=== PATIENT | female | born 1970 | race Caucasian/White ===

== ENCOUNTER 2021-03-21 09:06 | Outpatient (REF) | payer BC, SELFPAY ==
[2021-03-21 11:03] LABS: MANUAL DIFF FLAG NO
[2021-03-21 11:20] LABS: Alanine Aminotransferase 20 U/L (0-31); Anion Gap 12 (12-20); Aspartate Amino Transferase 22 U/L (5-31); Blood Urea Nitrogen 10 mg/dL (9-16); Calcium 9.8 mg/dL (8.4-10.2); Carbon Dioxide 26 mmol/L (22-29); Chloride 105 mmol/L (96-108); Cholesterol 224 mg/dL; Estimated Glomerular Filt Rate > 60; Glucose Fasting 86 mg/dL (60-99); HDL Cholesterol 41 mg/dL; LDL Cholesterol Calculated 132 mg/dl; Potassium 4.3 mmol/L (3.3-5.1); Sodium 139 mmol/L (135-145); Triglycerides 257 mg/dL
[2021-03-21 11:25] LABS: Basophils Percent Auto 0.4 % (0-2); Eosinophils Absolute Auto 0.3 X10*3/uL (0.0-0.4); Eosinophils Percent Auto 3.7 % (0-4); Hematocrit 41.3 % (37.0-47.0); Hemoglobin 13.6 g/dl (12.0-16.0); Imm Gran Abs Auto 0.03 X10*3/uL (0.00-0.03); Imm Gran Pct Auto 0.3 % (0.0-0.4); Lymphocytes Absolute Auto 2.5 X10*3/uL (1.2-4.9); Lymphocytes Percent Auto 27.4 % (20-40); Mean Corpuscular HGB Conc 32.9 g/dl (31.0-35.0); Mean Corpuscular Hemoglobin 29.2 pg (27.0-33.0); Mean Corpuscular Volume 88.6 fL (80.0-98.0); Monocytes Absolute Auto 0.6 X10*3/uL (0.1-1.2); Monocytes Percent Auto 6.2 % (2-11); Neutrophils Absolute Auto 5.6 x10*3/uL (2.0-8.3); Platelet Count 307 X10*3/uL (160-400); Red Blood Count 4.66 X10*6/uL (4.20-5.50)
[2021-03-21 11:45] LABS: TSH reflex Free T4 3.18 uIU/mL (0.32-4.0); Vitamin D 25-OH Total 26.5 ng/mL (>30)
== END 2021-03-21 09:07 | disposition home or self-care (01) ==
LOC: HO.HMGCLDS 09:06
PROVIDERS: PCP Internal Medicine; Visit Provider Internal Medicine
DX: Z00.01 Encounter for general adult medical examination with abnormal findings (principal); K21.9 Gastro-esophageal reflux disease without esophagitis; F32.A Depression, unspecified; F41.9 Anxiety disorder, unspecified; I10 Essential (primary) hypertension; G25.81 Restless legs syndrome
CPT/HCPCS: 36415; 80048; 80061; 82306; 84443; 84450; 84460; 85025

== ENCOUNTER → 2021-06-16 15:26 | Outpatient (BNVA) | payer BC, SELFPAY | PROVIDERS: PCP Internal Medicine; Referring Provider Internal Medicine; Visit Provider Nurse Practitioner Family ==

== ENCOUNTER 2021-10-19 08:59 | Day surgery (SDC) | payer BC, SELFPAY ==
--- NOTE | 2021-10-16 10:33 | P.CONAN_ITS ---
Documented by User: Natty Randall NP 10/16/21 10:33 HPI - Anesthesia Eval Consult details Narrative: 51yo F for Colonoscopy PMFSH Active Problems Active Problems: All Active Problems (Updated 03/30/21 @ 00:03 by Annabella Dimas MD) Restless leg (Acute) Chronic GERD (Acute) Anxiety and depression (Acute) FHx: skin cancer (Acute) Past Medical History Medical History Anxiety and depression Cervical myofascial pain syndrome Chronic GERD Depression FHx: skin cancer IBS (irritable bowel syndrome) Myofascial pain syndrome of thoracic spine Overweight Restless leg Seborrheic keratosis Splenomegaly Vitamin D deficiency Family History Family History Father Mental health disorder Prostate cancer Mother No problems noted. Maternal Grandmother No problems noted. Maternal Grandfather No problems noted. Paternal Grandfather No problems noted. Paternal Grandmother No problems noted. Sister No problems noted. Son No problems noted. Surgical History Surgical History History of colposcopy History of reduction mammoplasty History of tonsillectomy Hx of cholecystectomy Hx of LASIK Social History Social History Housing: House Patient Tobacco Use Status: Never used Tobacco Use of substances other than those prescribed or required for medical reasons: No Are you DNR?: No Advance Directives: No Advance Directives Information Provided: Yes service: No Current occupational status: employed Meds Allergies Allergy/AdvReac Type Severity Reaction Status Date / Time No Known Allergies Allergy Verified 09/02/21 15:09 Home Medications Medication Instructions Recorded Confirmed Last Taken Type levonorgestrel 20 mcg/24 hours (7 intrauterine 03/12/21 Unknown History yrs) 52 mg intrauterine device (Mirena) omeprazole 20 mg capsule,delayed 20 mg PO BID 03/12/21 Unknown History release sertraline 100 mg tablet 100 mg PO BID 03/12/21 Unknown History gabapentin 100 mg capsule 100 mg PO TID 06/16/21 Unknown History escitalopram oxalate 10 mg tablet 10 mg PO DAILY 09/02/21 Unknown History propranolol 10 mg tablet 10 mg PO TID PRN 09/02/21 Unknown History Exam Exam Date and Time: October 16, 2021 1033 Assessment and Plan Assessment Anesthesia Assessment: Chart Reviewed Documented by User: Fabiola Guallpa MD 10/19/21 09:35 COUNTS INCLUDE 234 BEDS AT THE [facility] Past Medical History Medical History Anxiety and depression Cervical myofascial pain syndrome Chronic GERD Depression FHx: skin cancer IBS (irritable bowel syndrome) Myofascial pain syndrome of thoracic spine Overweight Restless leg Seborrheic keratosis Splenomegaly Vitamin D deficiency Family History Family History Father Mental health disorder Prostate cancer Mother No problems noted. Maternal Grandmother No problems noted. Maternal Grandfather No problems noted. Paternal Grandfather No problems noted. Paternal Grandmother No problems noted. Sister No problems noted. Son No problems noted. Family history of problems with anesthesia: No Surgical History Surgical History History of colposcopy History of reduction mammoplasty History of tonsillectomy Hx of cholecystectomy Hx of LASIK History of Problems with Anesthesia: No Social History Social History Housing: House Patient Tobacco Use Status: Never used Tobacco Use of substances other than those prescribed or required for medical reasons: No Are you DNR?: No Advance Directives: No Advance Directives Information Provided: Yes service: No Current occupational status: employed Meds Allergies Allergy/AdvReac Type Severity Reaction Status Date / Time No Known Allergies Allergy Verified 09/02/21 15:09 Home Medications Medication Instructions Recorded Confirmed Last Taken Type levonorgestrel 20 mcg/24 hours (7 intrauterine 03/12/21 Unknown History yrs) 52 mg intrauterine device (Mirena) omeprazole 20 mg capsule,delayed 20 mg PO BID 03/12/21 Unknown History release sertraline 100 mg tablet 100 mg PO BID 03/12/21 Unknown History gabapentin 100 mg capsule 100 mg PO TID 06/16/21 Unknown History escitalopram oxalate 10 mg tablet 10 mg PO DAILY 09/02/21 Unknown History propranolol 10 mg tablet 10 mg PO TID PRN 09/02/21 Unknown History Exam Airway Mallampati Class: II TM Dist: >3cm Neck ROM: Full Heart: rrr Lungs: cta Assessment and Plan Assessment Anesthesia Assessment: Anesthesia Plan Discussed and Chart Reviewed Final Anesthetic Review Family History of Problems with Anesthesia: No History of Problems with Anesthesia: No NPO: Yes ASA Class: II Final Preanesthetic Review: No Changes in Pt Med Stat, Meds/Allgs Chart Reviewed and Consent Obtained/Reviewed Patient Risk: Intermediate Procedure Risk: Intermediate Anesthetic Plan Anesthetic Plan: MAC: Disposition: Standard PACU
[2021-10-19 09:23] VITALS: BMI 48.8
[2021-10-19 09:29] VITALS: BP 132/90; PULSE 89; RESP 18; TEMP 36.7; O2SAT 98
--- NOTE | 2021-10-19 09:33 | MHC.SHP ---
Pre-Procedural Eval Section A Date of Service: 10/19/21 The patient is an INPATIENT: No The History & Physical has been completed within 30 days and I have reviewed it.: No Section B Chief Complaint: Screening, Mixed irritable bowel syndrome Details of Present Illness: Colon cancer screening, IBS with diarrhea and constipation Relevant Family History (Specify if Yes): No Relevant Social History: None Present Medications: see Short Stay Collaborative assessment Medical History: Significant History (Anxiety and depression Cervical myofascial pain syndrome Chronic GERD Depression FHx: skin cancer IBS (irritable bowel syndrome) Myofascial pain syndrome of thoracic spine Overweight Restless leg Seborrheic keratosis Splenomegaly Vitamin D deficiency) History of Previous Operations: Relevant previous surgery/procedure and date(s) (History of colposcopy History of reduction mammoplasty History of tonsillectomy Hx of cholecystectomy Hx of LASIK) Allergies: Allergies Allergy/AdvReac Type Severity Reaction Status Date / Time No Known Allergies Allergy Verified 09/02/21 15:09 Review of Systems Sugical H&P ROS: Negative: Constitution, Cardiovascular and Respiratory and Yes, Specify: Gastrointestinal (IBS) Exam Surgical H&P Exam: Normal: Heart, Normal: Lungs, Normal: Extremities and Normal: Abdomen Plan Diagnosis/Plan: Unchanged I have reviewed the history and physical and performed a pertinent physical examination on my patient. No changes have occurred unless specified.
[2021-10-19] MEDS: Lactated Ringers 1,000 ML 100 ML IVCONT (09:35)
--- NOTE | 2021-10-19 09:39 | P.BOP_ITS ---
Brief Operative Note Date of Service: 10/19/21 Pre-op diagnosis: Colon cancer screening, IBS with diarrhea and constipation Post-op diagnosis: other (Diverticulosis, hemorrhoids) Procedure: COLONOSCOPY TILL CECUM WITH BIOPSIES Consent: Indications for the procedure and potential complications of bleeding, perforation, reaction to medications and missed diagnosis were discussed with the patient and informed consent was obtained. Instrument: Olympus PCF H 190 L variable stiffness pediatric colonoscope Monitoring: Vital signs and clinical assessment, intermittent blood pressure monitoring, continuous EKG monitoring, Pulse oximetry and Carbon Dioxide monitoring were done throughout the procedure. Colon withdrawl time was 15 minutes. Procedure: The patient was placed in the left lateral decubitis position and pre-procedure medications were administered. After a digital rectal examination of the ano-rectum, the video colonoscope was inserted into the rectum and advanced through the colon to the cecum. The colonoscope was slowly withdrawn in a retrograde panoramic fashion and the colon mucosa was carefully examined including a retroflexed view of the rectum. Findings and interventions are described below. Procedure Difficulty: Without difficulty Findings: Terminal Ileum: Not evaluated Cecum: Normal Ascending Colon: Normal Transverse Colon: Normal Descending Colon: Normal Sigmoid Colon: Moderate diverticulosis Rectum: Normal Ano-rectum: Small internal hemorrhoids and hypertrophied anal papillae Colon preparation: Excellent Impression and Post Procedure Diagnosis: Colonoscopy Findings: No polyps were detected. Random biopsies were obtained from the right colon to check for microscopic colitis Moderate diverticulosis seen in the sigmoid colon Moderate hemorrhoids on retroflexed exam. Plan: Await pathology results Patient has an appointment on 11/03/21 in the [facility] with Ashley Greenfield FNP- [facility]. Repeat Colonoscopy interval based on path results - in 3-5 years if polyps are adenomatous and 10 years if polyps are hyperplastic. Above findings were reviewed with the patient and diverticulosis handout was given in the discharge area Surgeon: Yanely Johansen MD Anesthesia: MAC (Dr Mueller) Was an Data Analytics Architect used for this Procedure?: Yes Data Analytics Architect: Aislinn Varela Estimated blood loss (mL): 0 Pathology: other (A. random right colon bxs, R/O microscopic colitis) Condition: stable Disposition: PACU
[2021-10-19 10:13] VITALS: BP 117/61; PULSE 89; RESP 16; TEMP 36.7; O2SAT 94
[2021-10-19 10:28] VITALS: BP 140/93; PULSE 88; RESP 17; TEMP 36.7; O2SAT 97
--- NOTE | 2021-10-19 11:21 | P.OP_ITS ---
Operative Note Operative Note Date of Service: 10/19/21 Narrative: Pre-op diagnosis: Colon cancer screening, IBS with diarrhea and constipation Post-op diagnosis:?other (Diverticulosis, hemorrhoids) Procedure: COLONOSCOPY TILL CECUM WITH BIOPSIES Consent: Indications for the procedure and potential complications of bleeding, perforation, reaction to medications and missed diagnosis were discussed with the patient and informed consent was obtained. Instrument: Olympus PCF H 190 L variable stiffness pediatric colonoscope Monitoring: Vital signs and clinical assessment, intermittent blood pressure monitoring, continuous EKG monitoring, Pulse oximetry and Carbon Dioxide monitoring were done throughout the procedure. Colon withdrawl time was 15 minutes. Procedure: The patient was placed in the left lateral decubitis position and pre-procedure medications were administered. After a digital rectal examination of the ano-rectum, the video colonoscope was inserted into the rectum and advanced through the colon to the cecum. The colonoscope was slowly withdrawn in a retrograde panoramic fashion and the colon mucosa was carefully examined including a retroflexed view of the rectum. Findings and interventions are described below. Procedure Difficulty: Without difficulty Findings: Terminal Ileum: Not evaluated Cecum:? Normal Ascending Colon:? Normal Transverse Colon:? Normal Descending Colon:? Normal Sigmoid Colon:? Moderate diverticulosis Rectum:? Normal Ano-rectum:? Small internal hemorrhoids and hypertrophied anal papillae Colon preparation: Excellent ? Impression and Post Procedure Diagnosis: Colonoscopy Findings: No polyps were detected. Random biopsies were obtained from the right colon to check for microscopic colitis Moderate diverticulosis seen in the sigmoid colon Moderate hemorrhoids on retroflexed exam. Plan: Await pathology results Patient has an appointment on 11/03/21 in the GI Clinic with Ashley Greenfield FNP- [facility]. Repeat Colonoscopy interval based on path results - in 3-5 years if polyps are adenomatous and 10 years if polyps are hyperplastic. Above findings were reviewed with the patient and? diverticulosis handout was given in the discharge area Surgeon: Yanely Johansen MD Anesthesia:?MAC (Dr Mueller) Was an Banquet Set Up Person used for this Procedure?:?Yes Banquet Set Up Person:?Aislinn Varela Estimated blood loss (mL):?0 Pathology:?other (A. random right colon bxs, R/O microscopic colitis) Condition:?stable Disposition:?PACU
== END 2021-10-19 10:58 | disposition home or self-care (01) ==
PROVIDERS: PCP Internal Medicine; Visit Provider Internal Medicine Gastroenterology
PROC: 0DJD8ZZ Inspection of Lower Intestinal Tract, Via Natural or Artificial Opening Endoscopic (ICD-10-PCS; CPT 45378; principal; 2021-10-19 10:10)
DX: Z12.11 Encounter for screening for malignant neoplasm of colon (principal); K58.2 Mixed irritable bowel syndrome; K57.30 Diverticulosis of large intestine without perforation or abscess without bleeding; K62.89 Other specified diseases of anus and rectum; K64.8 Other hemorrhoids; K21.9 Gastro-esophageal reflux disease without esophagitis; F41.8 Other specified anxiety disorders; R16.1 Splenomegaly, not elsewhere classified; E55.9 Vitamin D deficiency, unspecified; Z79.899 Other long term (current) drug therapy; Z90.49 Acquired absence of other specified parts of digestive tract
CPT/HCPCS: 45380; 88305; J2250

== ENCOUNTER 2021-12-26 16:29 | Outpatient (REF) | payer BC, SELFPAY ==
[2021-12-26 17:19] LABS: Influenza A PCR NEGATIVE (Negative); Influenza B PCR NEGATIVE (Negative); Resp Syncy Virus RNA Qual PCR NEGATIVE (Negative); SARS COV2 PCR INHOUSE NEGATIVE (Negative)
== END 2021-12-26 16:30 | disposition home or self-care (01) ==
LOC: HO.LNP 16:29
PROVIDERS: Visit Provider Physician Assistant Medical
DX: Z20.822 Contact with and (suspected) exposure to COVID-19 (principal); R05.9 Cough, unspecified
CPT/HCPCS: 0241U

== ENCOUNTER 2021-12-28 08:10 | Outpatient (REF) | payer BC, SELFPAY ==
--- NOTE | ~2021-12-28 | XR_ITS ---
EXAMINATION: XR CHEST CLINICAL INFORMATION: Cough, unspecified. Shortness of breath. COMPARISON: None TECHNIQUE: 2 views of the chest were obtained. FINDINGS: No significant abnormality is noted involving the heart, lungs, mediastinum, bony thorax or soft tissues. XR/XR chest 2V IMPRESSION: Unremarkable examination.
== END 2021-12-28 08:11 | disposition home or self-care (01) ==
LOC: HO.XRAY 08:10
PROVIDERS: PCP Internal Medicine; Visit Provider Physician Assistant Medical
DX: R05.9 Cough, unspecified (principal)
CPT/HCPCS: 71046